=== PATIENT | female | born 1965 | race African-American/Black ===

== ENCOUNTER 2016-09-10 18:38 | Emergency (ER) | payer BC, OTHER ==
[2016-09-10 18:53] VITALS: BP 156/107; PULSE 97; TEMP 97.8; BMI 30.7
--- NOTE | 2016-09-10 20:12 | PDOC ---
History of Present Illness - General Chief Complaint: Cold Symptoms Stated Complaint: COUGH Time Seen by Provider: 09/10/16 19:47 History Source: Patient Exam Limitations: No Limitations - History of Present Illness Initial Comments: 09/10/16 20:10 51 yr female with cough for one week no fever, sinus congestion . Pt on albuterol inhlaer and nebulizer with no relief. no fever no chest pain . Timing/Duration: reports: week Severity: reports: mild Possible Cause: Yes: occasional episodes Past History - Past Medical History Allergies/Adverse Reactions: Allergies Allergy/AdvReac Type Severity Reaction Status Date / Time No Known Allergies Allergy Verified 09/10/16 18:53 Home Medications: Ambulatory Orders Azithromycin [Zithromax 250mg Tablets -] 250 mg PO UTDICT #6 tab 09/10/16 Asthma: Yes HTN: Yes - Psycho/Social/Smoking Cessation Hx Suicidal Ideation: No Smoking History: Never smoked Hx Alcohol Use: No Drug/Substance Use Hx: No Substance Use Type: None Respiratory Specific PMHX - Complaint Specific PMHX Angina: No Bronchitis: No Pneumonia: No Pulmonary Embolus: No TB (Tuberculosis): No Review of Systems - Review of Systems Able to Perform ROS?: Yes Is the patient limited Mongolian proficient: No Constitutional: No: Symptoms Reported HEENTM: Yes: Nose Congestion Respiratory: Yes: Cough *Physical Exam - Vital Signs Last Vital Signs Temp Pulse Resp BP Pulse Ox 97.8 F 97 H 20 156/107 99 09/10/16 18:50 09/10/16 18:50 09/10/16 18:50 09/10/16 18:50 09/10/16 18:50 - Physical Exam General Appearance: Yes: Nourished, Appropriately Dressed HEENT: positive: EOMI, ASTRID, Normal ENT Inspection, TMs Normal, Pharynx Normal, Nasal Congestion. negative: Sinus Tenderness Neck: positive: Supple. negative: Tender Respiratory/Chest: positive: Lungs Clear, Normal Breath Sounds. negative: Chest Tender, Wheezing Cardiovascular: positive: Regular Rhythm, Regular Rate Gastrointestinal/Abdominal: positive: Normal Bowel Sounds, Soft Musculoskeletal: positive: Normal Inspection. 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 NML intact, Fully Oriented, Motor Strength 5/5 ED Treatment Course - RADIOLOGY Radiology Studies Ordered: Category Date Time Status CHEST PA & LAT [RAD] Stat Radiology 09/10/16 19:52 Taken Medical Decision Making - Medical Decision Making 09/10/16 20:12 cc: cough for one week worse at night productive white phlegm no fever non toxic stable vitals, pt denies headache or chest pain, states not on any meds for HTN will get CXR 09/10/16 20:31 wet read CXR right lower lobe infiltrate pt is stable non toxic no vomiting or fever no SOB or chest pain will treat as outpt with strict follow up tomorrow with PMD BP 145/87 left arm 150/87 right arm 09/10/16 20:34 *DC/Admit/Observation/Transfer Diagnosis at time of Disposition: Pneumonia Qualifiers: Pneumonia type: due to unspecified organism Laterality: right Lung location: lower lobe of lung Qualified Code(s): J18.1 - Lobar pneumonia, unspecified organism - Discharge Dispostion Disposition: HOME Condition at time of disposition: Good - Prescriptions Prescriptions: Azithromycin [Zithromax 250mg Tablets -] 250 mg PO UTDICT #6 tab - Referrals Referrals: STAFF,NOT ON [Primary Care Provider] - - Patient Instructions Additional Instructions: please follow with your primary care doctor tomorrow for follow up drink pleanty of fluids and rest at home take the antibiotic as prescribed continue to use inhaler 4x day return to ER for any worsening symptoms
[2016-09-10] MEDS ORDERED: AZITHROMYCIN 250 MG TABLET (FP) PO ONE (20:46)
[2016-09-10] MEDS ORDERED: AZITHROMYCIN 250 MG TABLET (FP) ONE (20:48)
== END 2016-09-10 20:52 | disposition home or self-care (01) ==
LOC: JERFT 18:38
DX: J18.1 Lobar pneumonia, unspecified organism (principal); I10 Essential (primary) hypertension; J45.909 Unspecified asthma, uncomplicated
CPT/HCPCS: 71020-TC; 99281-25